=== PATIENT | female | born 1985 | race Caucasian/White ===

== ENCOUNTER 2020-12-10 19:48 | Emergency (ER) | payer BC, SELFPAY ==
[~2020-12-10] VITALS: Ht 167.6 cm; Wt 107.5 kg
[2020-12-10] MEDS ORDERED: ESCITALOPRAM OX20 MG PO (21:00)
[2020-12-10] MEDS ORDERED: METFORMIN HCL500 MG PO (21:00)
[2020-12-10] MEDS ORDERED: HYDROXYZINE HCL25 MG PO (23:14)
== END 2020-12-10 23:20 | disposition home or self-care (01) ==
LOC: ED 19:48
DX: H10.9 Unspecified conjunctivitis (principal); Z79.899 Other long term (current) drug therapy; Z79.84 Long term (current) use of oral hypoglycemic drugs
CPT/HCPCS: 96372; 99283; J1200